=== PATIENT | female | born 1955 | race Caucasian/White ===

== ENCOUNTER 2020-03-28 08:17 | Day surgery (SDC) | payer BC ==
[2020-03-20 13:16] LABS: BASOPHILS # (AUTO) 0.1 X10'3 (0-0.2); BASOPHILS % (AUTO) 0.6 % (0-1); EOSINOPHILS # (AUTO) 0.1 X10'3 (0-0.9); EOSINOPHILS % (AUTO) 1.6 % (0-6); LYMPHOCYTES # (AUTO) 1.4 X10'3 (1.1-4.8); LYMPHOCYTES % (AUTO) 17.3 % (21-51); MEAN CORPUSCULAR HEMOGLOBIN 30.7 PG (27.0-31.0); MEAN CORPUSCULAR HGB CONC 33.1 g/dL (33.0-36.5); MEAN CORPUSCULAR VOLUME 92.7 FL (78-98); MEAN PLATELET VOLUME 8.4 FL (7.4-10.4); MONOCYTES # (AUTO) 0.6 X10'3 (0-0.9); MONOCYTES % (AUTO) 7.5 % (2-12); PRE OP HEMATOCRIT 41.2 % (35.0-45.0); PRE OP HEMOGLOBIN 13.6 g/dL (12.0-16.0); PRE OP PLATELET COUNT 278 X10'3 (140-440); RED BLOOD COUNT 4.44 X10'6 (4.20-5.60); RED CELL DISTRIBUTION WIDTH 13.1 % (11.5-14.5)
[2020-03-20 13:29] LABS: ALKALINE PHOSPHATASE 109 IU/L (46-116); BLOOD UREA NITROGEN 18 MG/DL (7-18); BUN/CREATININE RATIO 24.3 (6.6-38.0); CALCIUM 9.3 MG/DL (8.5-10.1); CHLORIDE 108 MMOL/L (99-107); CREATININE 0.74 MG/DL (0.40-0.90); PRE OP ALT 12 U/L (30-65); PRE OP ANION GAP 9 (8-16); PRE OP AST 16 U/L (10-37); PRE OP BILIRUB, TOTAL 0.4 MG/DL (0.0-1.0); PRE OP GLUCOSE 92 MG/DL (70-104); PRE OP POTASSIUM 4.1 MMOL/L (3.4-5.1); PRE OP SODIUM 143 MMOL/L (135-145); TOTAL CARBON DIOXIDE 26.5 MMOL/L (24-32); TOTAL PROTEIN 7.9 G/DL (6.4-8.2); eGFR 79 ML/MIN
[~2020-03-28] VITALS: Ht 170.2 cm; Wt 78.9 kg
[2020-03-28] VITALS (8 sets, daily range): BP systolic 121–133; BP diastolic 71–87
[~2020-03-28 08:17] MED LIST: ACET-1025 PO; ESTROVEN OTC PO; LEVO50TA8 PO; NITR100C11 PO; clindamycin-Cleocin 900mg/D5W 50 ML IV ONE; famotidine 20mg tablet PO ONE; meperidine/PF 25mg/ml syringe IV PRN; morphine 2 MG/ML inj. syringe IV PRN; morphine 4 MG/ML inj SYRINge IV PRN; ondansetron/PF 4mg/2ml inj IV PRN; proCHLORperazine 10 MG/2 ml inj IV PRN; ringers solution, lacted 1,000 ML IV SCH; vancomycin 1,500 MG in NS 500ml IV soln IV ONE
[2020-03-28] MEDS ORDERED: BUPIVAcaine/PF 2.5 mg/ml (0.25%) 30ml vial ONE (09:51)
[2020-03-28] MEDS ORDERED: sevoflurane 250ml liquid IH ONE (10:36)
[2020-03-28] MEDS ORDERED: cefazolin/dext.iso 2gm/100ml BAG IV ONE (10:36)
[2020-03-28] MEDS ORDERED: midazolam 2 mg/2 ml injection ONE (10:42)
[2020-03-28] MEDS ORDERED: fentaNYL/PF 50MCG/1 ML 2ML syringe ONE (10:42)
[2020-03-28] MEDS ORDERED: propofol inj 20 ML IV ONE (10:48)
[2020-03-28] MEDS ORDERED: LIDOcaine 2% (20mg/ml) 5ml vial ONE (10:48)
[2020-03-28] MEDS ORDERED: dexamethasone sod phosphate 4mg/ml inj. ONE (10:49)
[2020-03-28] MEDS ORDERED: ondansetron/PF 4mg/2ml inj ONE (10:53)
[2020-03-28] MEDS ORDERED: ketorolac trometh. 30mg/ml inj. ONE (10:54)
[2020-03-28] MEDS ORDERED: acetaminophen 1,000mg/100ml IV 100 ML IV ONE (11:48)
--- NOTE | 2020-03-28 12:10 | NUR ---
Received from OR via BED, accompanied by Anesthesiologist DR DSOUZA and report given by Anesthesiolgist. PATIENT A&OX4, DENIES PAIN, V/S WNL, NEUROVASCULAR CHECKS INTACT, 20G PIV RUE, SCD ON, DRESSING TO RIGHT ANKLE CDI ELEVATED WITH ICEBAG APPLIED
--- NOTE | 2020-03-28 13:10 | NUR ---
PATIENT A&OX4, DENIES PAIN, V/S WNL, NEUROVASCULAR CHECKS INTACT, 20G PIV LUE D/C, SCD OFF, DRESSING TO RIGHT RIGHT FOOT CDI ELEVATED WITH ICEBAG APPLIED. I HAVE REVIEWED D/C INSTRUCTIONS WITH PATIENT AND FAMILY AND THEY HAVE VERBALIZED UNDERSTANDING. PATIENT D/C HOME WITH ALL BELONGINGS AND FAMILY GAVE TRANSPORT HOME.
== END 2020-03-28 13:10 | disposition home or self-care (01) ==
LOC: PAS 08:17
PROVIDERS: ATTEND Orthopaedic Surgery
DX: M20.41 Other hammer toe(s) (acquired), right foot (principal); M77.41 Metatarsalgia, right foot; I10 Essential (primary) hypertension; E03.9 Hypothyroidism, unspecified; Z88.2 Allergy status to sulfonamides; Z88.0 Allergy status to penicillin; E66.8 Other obesity; Z68.28 Body mass index [BMI] 28.0-28.9, adult; Z72.89 Other problems related to lifestyle; Z98.890 Other specified postprocedural states; Z79.899 Other long term (current) drug therapy; Z11.59 Encounter for screening for other viral diseases; Z90.710 Acquired absence of both cervix and uterus
CPT/HCPCS: 28285; 36415; 80053; 82948; 85025; 93005; A6222; C1713; J0131; J1100; J1885; J2001; J2250; J2405; J2704; J3010; J3370; J3490; J7040; J7120; L3260; U0003; A4215; A4618; A6449; A7000

== ENCOUNTER 2020-08-23 22:02 | Emergency (ER) | payer BC, MEDICARE ==
[~2020-08-23] VITALS: Ht 170.2 cm; Wt 79.5 kg
[~2020-08-23 22:02] MED LIST changes: -clindamycin-Cleocin 900mg/D5W 50 ML IV ONE; -famotidine 20mg tablet PO ONE; -meperidine/PF 25mg/ml syringe IV PRN; -morphine 2 MG/ML inj. syringe IV PRN; -morphine 4 MG/ML inj SYRINge IV PRN; -ondansetron/PF 4mg/2ml inj IV PRN; -proCHLORperazine 10 MG/2 ml inj IV PRN; -ringers solution, lacted 1,000 ML IV SCH; -vancomycin 1,500 MG in NS 500ml IV soln IV ONE
--- NOTE | 2020-08-23 22:59 | NUR ---
pt says surgery was at 1130 this am, with Toña Boyer at [facility], placed 2 pins in right 2nd and 3rd metatasal. was given some nausea med before dc, had relief before dc. n/v upon reutrn to hotel at approx 1430
[2020-08-23] MEDS ORDERED: morphine 4 MG/ML inj SYRINge IV ONE (23:10)
[2020-08-23] MEDS ORDERED: metoclopramide 5 mg/ml inj IV ONE (23:10)
[2020-08-23] MEDS ORDERED: diphenhydrAMINE 50 mg/ml inj IV ONE (23:10)
[2020-08-24 00:07] VITALS: BP 116/65
[2020-08-24] MEDS ORDERED: PROM25SU9 RC (00:58)
--- NOTE | 2020-08-24 00:58 | NUR ---
I gave the pt water to drink/MD wants a po challenge.
== END 2020-08-24 01:33 | disposition home or self-care (01) ==
LOC: ER 22:03
DX: R11.2 Nausea with vomiting, unspecified (principal); Z88.0 Allergy status to penicillin; Z88.2 Allergy status to sulfonamides; Z79.899 Other long term (current) drug therapy
CPT/HCPCS: 93005; 96374; 96375; 99284; J1200; J2270; J2765